=== PATIENT | female | born 1995 | race Caucasian/White ===

== ENCOUNTER 2021-07-07 19:10 | Emergency (ER) | payer OTHER ==
[~2021-07-07] VITALS: Ht 165.1 cm; Wt 57.6 kg
[2021-07-07] MEDS ORDERED: BUSPIRONE HCL5 MG (19:42)
== END 2021-07-07 23:47 | disposition home or self-care (01) ==
LOC: ER 19:10
DX: A05.9 Bacterial foodborne intoxication, unspecified (principal); Z91.011 Allergy to milk products; Z91.018 Allergy to other foods

== ENCOUNTER 2024-02-07 10:36 | Emergency (ER) | payer OTHER ==
[~2024-02-07] VITALS: Ht 165.1 cm; Wt 59.0 kg
[~2024-02-07 10:36] MED LIST: BUSPIRONE HCL5 MG
== END 2024-02-07 13:42 | disposition home or self-care (01) ==
LOC: ER 10:37
DX: M25.571 Pain in right ankle and joints of right foot (principal); Z91.011 Allergy to milk products; Z91.018 Allergy to other foods